=== PATIENT | male | born 1975 | race African-American/Black ===

== ENCOUNTER 2019-03-28 18:53 | Emergency (ER) | payer MEDICAID ==
--- NOTE | 2019-03-28 19:20 | ER Document Report ---
ED Medical Screen (RME) - General Chief Complaint: Leg Pain Stated Complaint: LEG PAIN Time Seen by Provider: 03/28/19 19:11 Mode of Arrival: Wheelchair Information source: Patient, Relative TRAVEL OUTSIDE OF THE [place] IN LAST 30 DAYS: No - HPI Patient complains to provider of: RIGHT LEG PAIN Notes: 03/28/19 19:19 Patient is here with complaints of right leg pain and swelling. Patient had prior CVA. He has right-sided weakness due to this. He also had blood clots in the past. Is currently on Lovenox. Family noticed 3 areas under the skin that they are concerned are DVTs. No fever. Exam No distress, nontoxic-appearing. Weakness to the right side of the body. Patient noted to have 3 what feel like hematomas to the right lower leg. To in the calf, one in the lateral thigh. Normal pulse and sensation. No redness. Plan CBC, CMP, coags, venous Doppler of the right lower extremity. An initial examination was made on the patient as part of the triage process, and it was determined a more comprehensive evaluation was necessary. Initial labs were ordered and patient was transferred to another provider in the ED who assumed care and finished evaluation and plan. - Related Data Allergies/Adverse Reactions: lisinopril Allergy (Verified 03/28/19 19:08) Physical Exam - Vital signs Vitals: Temp Pulse Resp BP Pulse Ox 98.5 F 71 16 161/109 H 98 03/28/19 19:03 03/28/19 19:03 03/28/19 19:03 03/28/19 19:03 03/28/19 19:03 Course - Vital Signs Vital signs: Temp Pulse Resp BP Pulse Ox 98.5 F 71 16 161/109 H 98 03/28/19 19:03 03/28/19 19:03 03/28/19 19:03 03/28/19 19:03 03/28/19 19:03
[2019-03-28 21:21] LABS: ABSOLUTE EOSINOPHILS # (AUTO) 0.2 10^3/uL (0.0-0.6); ABSOLUTE LYMPHOCYTES (AUTO) 1.6 10^3/uL (0.5-4.7); ABSOLUTE MONOCYTES (AUTO) 0.4 10^3/uL (0.1-1.4); ABSOLUTE NEUT (AUTO) 2.2 10^3/uL (1.7-8.2); BASOPHILS % (AUTO) 0.5 % (0-2); EOSINOPHILS % (AUTO) 3.5 % (0-6); HEMATOCRIT 40.4 % (37.9-51.0); HEMOGLOBIN 12.8 g/dL (13.5-17.0); LYMPHOCYTES % (AUTO) 36.5 % (13-45); MEAN CORPUSCULAR HEMOGLOBIN 22.5 pg (27.0-33.4); MEAN CORPUSCULAR HGB CONC 31.7 g/dL (32.0-36.0); MEAN CORPUSCULAR VOLUME 71 fl (80-97); MONOCYTES % (AUTO) 8.6 % (3-13); PLATELET COUNT 266 10^3/uL (150-450); RED CELL DISTRIBUTION WIDTH 17.5 % (11.5-14.0); SEGMENTED NEUTROPHILS % (AUTO) 50.9 % (42-78); TOTAL CELLS COUNTED % (AUTO) 100 %; WHITE BLOOD COUNT 4.4 10^3/uL (4.0-10.5)
[2019-03-28 21:25] LABS: INTERNATIONAL RATION (INR) 1.03
--- NOTE | 2019-03-28 21:25 | RADIOLOGY REPORT (SQ) ---
EXAM DESCRIPTION: [facility]: US EXTREMITY VEINS UNILATERAL CLINICAL HISTORY: 43 years Male; PAIN, SWELLING TECHNIQUE: Multiple grayscale sonographic images of both legs were obtained utilizing a high-frequency linear array transducer supplemented with color Doppler, compression and augmentation techniques. Note that the charge at the time of this dictation is for unilateral exam, although both legs were evaluated. COMPARISON: None. FINDINGS: Right leg veins: Common femoral: normal Greater saphenous: normal upper Superficial femoral: normal mid Superficial femoral: normal lower Superficial femoral: normal Popliteal: normal Posterior Tibial: normal Left leg veins: Common femoral: normal Greater saphenous: normal upper Superficial femoral: normal mid Superficial femoral: normal lower Superficial femoral: normal Popliteal: normal Posterior Tibial: normal IMPRESSION: 1. No sonographic evidence for lower extremity deep venous thrombosis in either leg.
[2019-03-28 21:48] LABS: ALANINE AMINOTRANSFERASE 51 U/L (21-72); ALBUMIN 3.7 g/dL (3.5-5.0); ALKALINE PHOSPHATASE 64 U/L (38-126); ANION GAP 9 (5-19); ASPARTATE AMINO TRANSFERASE 20 U/L (17-59); BILIRUBIN,DIRECT 0.1 mg/dL (0.0-0.4); BILIRUBIN,TOTAL 0.7 mg/dL (0.2-1.3); BLOOD UREA NITROGEN 24 mg/dL (7-20); CALCIUM 9.3 mg/dL (8.4-10.2); CARBON DIOXIDE 27 mmol/L (22-30); CHLORIDE 105 mmol/L (98-107); GLUCOSE 95 mg/dL (75-110); POTASSIUM 4.2 mmol/L (3.6-5.0); SODIUM 141.4 mmol/L (137-145); TOTAL PROTEIN 6.2 g/dL (6.3-8.2)
[2019-03-29] MEDS ORDERED: ENOXAPARIN SODIUM INJ 80 MG/0.8 ML DISP.SYRIN SUBCUT ONE (00:28)
[2019-03-29] MEDS ORDERED: HYDROCODONE/ACETAMINOPHEN 5-325 MG (6 TAB/ER DISP) PO PRN (00:30)
--- NOTE | 2019-03-29 00:54 | ER Document Report ---
ED General - General Chief Complaint: Leg Pain Stated Complaint: LEG PAIN Time Seen by Provider: 03/28/19 19:11 Mode of Arrival: Wheelchair TRAVEL OUTSIDE OF THE [place] IN LAST 30 DAYS: No - HPI Notes: Patient is a 43-year-old gentleman presents to the emergency department for eval uation of pain in his leg. His is the primary historian, as the patient has a history of CVA with aphasia. He has palpable reasons in his right calf, lateral right leg, that is concerned could be blood clots. They started over the last several days. No known injuries. No fevers. No vomiting. Taking medications as prescribed. - Related Data Allergies/Adverse Reactions: lisinopril Allergy (Verified 03/28/19 19:08) Past Medical History - General Information source: Patient, Relative - Social History Smoking Status: Current Every Day Smoker Frequency of alcohol use: None Drug Abuse: None Family History: Reviewed & Not Pertinent Patient has suicidal ideation: No Patient has homicidal ideation: No - Past Medical History Cardiac Medical History: Reports: Hx Congestive Heart Failure, Hx Heart Attack, Hx Hypercholesterolemia, Hx Hypertension Neurological Medical History: Reports: Hx Cerebrovascular Accident Renal/ Medical History: Denies: Hx Peritoneal Dialysis Past Surgical History: Reports: Hx Cardiac Surgery - stents Review of Systems - Review of Systems -: Yes ROS unobtainable due to patient's medical condition - Patient aphasic. 12 systems reviewed with and found to be negative. Physical Exam - Vital signs Vitals: Temp Pulse Resp BP Pulse Ox 98.5 F 71 16 161/109 H 98 03/28/19 19:03 03/28/19 19:03 03/28/19 19:03 03/28/19 19:03 03/28/19 19:03 - Notes Notes: Vital signs reviewed, please refer to chart. Frail-appearing 43-year-old male resting comfortably on the cot. Patient is normocephalic, atraumatic. Pupils equal round, reactive to light. Neck is supple without meningismus. Heart is regular rate and rhythm. Lungs are clear to auscultation bilaterally. Abdomen is soft, nontender, normoactive bowel sounds throughout. Extremities without cyanosis, clubbing, edema. Peripheral pulses are equal. Examination of the right lower extremity yields to nodules in the subcutaneous tissue of th right posterior calf, 1-1/2 cm, tender. There are no overlying skin changes. No fluctuance, no erythema. He also has a third nodular lesion in the subcutaneous tissue of the right lateral thigh. Again no overlying skin changes. Dorsalis pedis and posterior tibial pulses are easily palpable. Course - Re-evaluation Re-evalutation: 03/29/19 01:04 Patient presents to the emergency department for evaluation. Initial laboratory investigations as well as imaging were ordered through triage. Laboratory investigations are largely unremarkable for anything acute. Doppler was found to be negative with bilateral lower extremities. At this point I do not have a clear etiology as to what these nodules are. They do would be causing the patient pain. I discussed this with the patient's . She asked for something stronger. I explained her the Vicodin can cause constipation, which has been a significant problem for him. I advised her to use laxatives while taking this medicine. She voiced understanding. Otherwise he is to follow-up with primary care, return to the ED with worsening or new concerning symptoms. - Vital Signs Vital signs: Temp Pulse Resp BP Pulse Ox 98.7 F 72 20 148/72 H 97 03/29/19 01:02 03/29/19 01:02 03/29/19 01:02 03/29/19 01:02 03/29/19 01:02 - Laboratory Result Diagrams: 03/28/19 21:05 03/28/19 21:05 Laboratory results interpreted by me: 03/28/19 03/28/19 21:05 21:05 RBC 5.70 H Hgb 12.8 L MCV 71 L MCH 22.5 L MCHC 31.7 L RDW 17.5 H BUN 24 H Total Protein 6.2 L Discharge - Discharge Clinical Impression: Right leg pain, Subcutaneous nodule of right lower leg Condition: Stable Disposition: HOME, SELF-CARE Additional Instructions: The Doppler for blood clots tonight was negative. It is unclear at this time with the nodules in your leg R. Take medications as prescribed. Watch for constipation with the Vicodin as discussed. Follow-up with this week. Return to the emergency department with worsening or new concerning symptoms.
[2019-03-29 01:05] VITALS: BP 148/72
== END 2019-03-29 01:06 | disposition home or self-care (01) ==
LOC: ER 18:53
DX: M79.604 Pain in right leg (principal); R22.41 Localized swelling, mass and lump, right lower limb; F17.200 Nicotine dependence, unspecified, uncomplicated; I50.9 Heart failure, unspecified; E78.00 Pure hypercholesterolemia, unspecified; I11.0 Hypertensive heart disease with heart failure; I69.320 Aphasia following cerebral infarction; I25.2 Old myocardial infarction
CPT/HCPCS: 99284; 96372; 36415; 85025; 85610; 85730; 80053; 93971; J1650